=== PATIENT | female | born 1945 | race Caucasian/White ===

== ENCOUNTER 2020-02-09 08:35 | Outpatient (CLI) | payer MEDICARE ==
--- NOTE | 2020-02-09 09:57 | CT ---
EXAM: CT chest without contrast PROVIDED CLINICAL HISTORY: Nicotine dependence, lung screening COMPARISON: None FINDINGS: The heart, pericardium and great vessels are suboptimally evaluated in the absence of IV contrast mat erial. Vascular calcification including coronary calcium is demonstrated. There is no evidence for thoracic lymph node enlargement with limitations due to lack of IV contrast. The airway appears patent and of normal caliber. There is no concerning pulmonary nodule evident. There is a sub-3 mm nodular density involving the li ngula. There are sub-4 mm nodules involving the right middle lobe. There is a sub-6 mm noncalcified nodule involving the right lower lobe. Occasional areas of peripheral subpleural groundglass opacity are demonstrated. No pleural fluid or pneumothorax apparent. The visualized portions of the upper abdomen demonstrate no significant abnormality. The osseous structures demonstrate no concerning lytic or blastic lesions IMPRESSION: 1. Lung RADS category 2-benign findings. Continue annual screening. 2. Scattered areas of groundglass opacity, nonspecific. Correlate with concerns for infectious or inf lammatory pneumonitis.
== END 2020-02-09 08:36 | disposition home or self-care (01) ==
LOC: BICCT 08:35
PROVIDERS: ATTEND Internal Medicine
DX: Z12.2 Encounter for screening for malignant neoplasm of respiratory organs (principal); F17.210 Nicotine dependence, cigarettes, uncomplicated; R91.8 Other nonspecific abnormal finding of lung field
CPT/HCPCS: G0297